=== PATIENT | female | born 1955 | race Caucasian/White ===

== ENCOUNTER 2017-06-12 20:12 | Emergency (ER) | payer SELFPAY ==
[2017-06-12] MEDS ORDERED: IPRATROPIUM/ALBUTEROL SULFATE 3 ML SOLUTION IH ONE (21:35)
== END 2017-06-12 23:13 | disposition home or self-care (01) ==
LOC: EDH 20:12
DX: J40 Bronchitis, not specified as acute or chronic (principal); Z98.51 Tubal ligation status
CPT/HCPCS: 71046; 87804; 94640